=== PATIENT | female | born 1935 | race Caucasian/White ===

== ENCOUNTER 2018-12-08 16:08 | Emergency (ER) | payer OTHER, MEDICAID ==
[~2018-12-08] VITALS: Ht 157.5 cm; Wt 63.5 kg
--- NOTE | 2018-12-08 16:26 | NUR ---
Placed in room 2 . Placed on nuclear monitoring technician, blood pressure machine and pulse oximeter. To gown for exam. Side rails up. Report given to Maximino SANDOVAL.
[2018-12-08 16:28] VITALS: BP_SYST 174
--- NOTE | 2018-12-08 16:46 | NUR ---
Patient is awake and alert. Patient does not answer questions, she just stares, opens her mouth, and points at it. She does not appear to be in any distress.
[2018-12-08 16:47] LABS: BASOPHILS % (AUTO) 0.1 % (0.0-2.0); EOSINOPHILS # (AUTO) 0.2 K/uL (0.0-0.4); EOSINOPHILS % (AUTO) 2.5 % (0.0-4.0); HEMOGLOBIN 11.8 g/dL (12.0-16.0); LYMPHOCYTES # (AUTO) 2.5 K/uL (1.0-5.5); LYMPHOCYTES % (AUTO) 37.4 % (20.5-51.5); MEAN CORPUSCULAR HEMOGLOBIN 28 pg (27-31); MEAN CORPUSCULAR HGB CONC 33 % (32-36); MEAN CORPUSCULAR VOLUME 86 fL (79.0-98.0); MONOCYTES # (AUTO) 0.6 K/uL (0.0-1.0); MONOCYTES % (AUTO) 8.2 % (1.7-9.3); NEUTROPHILS # (AUTO) 3.5 K/uL (1.8-7.7); NEUTROPHILS % (AUTO) 51.8 % (40.0-70.0); PLATELET COUNT (AUTO) 206 K/uL (130-430); RED BLOOD CELL COUNT(AUTO) 4.18 MIL/uL (4.2-6.2); RED CELL DISTRIBUTION WIDTH 14.2 % (9.0-15.0); WHITE BLOOD COUNT (AUTO) 6.8 K/uL (4.8-10.8)
--- NOTE | 2018-12-08 16:50 | NUR ---
ER Dr. Langston at bedside examining patient.
[2018-12-08 17:03] LABS: ANION GAP 6 (5-15); CALCIUM 9.2 mg/dL (8.4-11.0); CHLORIDE 101 mmol/L (98-107); GLUCOSE 96 mg/dL (70-99); POTASSIUM 3.6 mmol/L (3.5-5.1); SODIUM SERUM 134 mmol/L (136-145); UREA NITROGEN, BLOOD 17 mg/dL (8-21)
[2018-12-08 17:05] LABS: BILIRUBIN,URINE NEGATIVE (NEGATIVE); BLOOD, URINE NEGATIVE (NEGATIVE); CLARITY/URINE HAZY (CLEAR); COLOR,URINE YELLOW (YELLOW); GLUCOSE,URINE NEGATIVE (NEGATIVE); KETONES,URINE NEGATIVE (NEGATIVE); LEUKOCYTE ESTERASE ,URINE 1+ (NEGATIVE); NITRITE, URINE POSITIVE (NEGATIVE); PH,URINE 5.5 (5.0-8.0); PROTEIN URINE NEGATIVE (NEGATIVE); UROBILINOGEN,URINE 0.2 (0.2-1.0)
--- NOTE | 2018-12-08 17:06 | NUR ---
X-ray at bedside.
--- NOTE | 2018-12-08 17:20 | NUR ---
Patient refused IV insertion. Dr. Langston made aware.
[2018-12-08] MEDS ORDERED: cefTRIAXone 1 GM IVPB PREMIX 50 ML IV ONE (17:30)
[2018-12-08] MEDS ORDERED: hydrALAZINE HCL 20 MG/ML VIAL IVP ONE (17:30)
[2018-12-08] MEDS ORDERED: CIPROFLOXACIN HCL 500 MG TABLET PO ONE (17:45)
[2018-12-08] MEDS ORDERED: cloNIDine HCL 0.1 MG TABLET PO ONE ×2 (17:45→18:45)
[2018-12-08 18:04] LABS: BACTERIA,URINE MANY /HPF (None Seen); RBC,URINE 0-3 /HPF (0-3); WBC,URINE 20-50 /HPF (0-3)
[2018-12-08 18:05] LABS: MUCUS,URINE None Seen /LPF (None Seen)
--- NOTE | 2018-12-08 18:56 | NUR ---
Called Alli at [phone] to give report, Alli stated he would not accept patient due to blood pressure. Dr. Langston made aware.
[2018-12-08] MEDS ORDERED: hydrALAZINE HCL 10 MG TABLET PO ONE (19:00)
--- NOTE | 2018-12-08 19:12 | NUR ---
Report given to JAIME Langston for continuation of care.
--- NOTE | 2018-12-08 19:23 | NUR ---
Medication was given, pt tolerated well. No adverse reaction, will continue to monitor.
--- NOTE | 2018-12-08 19:55 | NUR ---
Spoke with Dimple from [facility] in regards to transferring patient. Per Dimple, she stated she will call us back because they want to speak with Dr. Foster.
--- NOTE | 2018-12-08 20:00 | NUR ---
Spoke with Dr. Foster in regards to patient's blood pressure and [facility] nurses refusing patient transfer based upon blood pressure. No new orders given. Dr. Lindsay made aware.
--- NOTE | 2018-12-08 20:21 | NUR ---
Gave report to Cally from [facility]. Informed nurse that patient's blood pressure is now 168/64. Cally accepted transfer for patient. Currently calling for transportation.
--- NOTE | 2018-12-08 21:03 | NUR ---
patient's current blood pressure is 166/70. patient denies any pain, shortness of breath, and blurred vision.
[2018-12-08 21:18] VITALS: BP_SYST 168
--- NOTE | 2018-12-08 21:18 | NUR ---
Note undone in EDM - 12/09/18 at 0257 by [email or web address] Patient given written and verbal discharge instructions and verbalizes understanding. ER discussed with patient the results and treatment provided. Patient in stable condition. ID arm band removed. Rx of Cipro given. Patient educated on pain management and to follow up with PMD. Pain Scale 0. Opportunity for questions provided and answered. Medication side effect fact sheet provided. Gave report to Roxanna from [facility].
--- NOTE | 2018-12-08 21:18 | NUR ---
Patient to be transferred to [facility]. Is being transferred due to higher level of care. Receiving facility has accepting physician and available space. ER physician has signed transfer form. Patient or responsible democrat has agreed to transfer and signed form. Patient belongings inventoried and will be sent with patient. Copy of nursing notes, lab reports, EKG, Physicians Orders and X-rays to be sent with patient. Report called to Cally at receiving facility. Receiving physician is Dr. Foster. [facility] service has been called for transfer. VSS.
[2018-12-09 14:35] LABS: CHOLESTEROL 109 mg/dL (<200); HDL CHOLESTEROL 27 mg/dL (>55); LDL CHOLESTEROL 61 mg/dL (<100); TRIGLYCERIDES 129 mg/dL (30-150)
== END 2018-12-08 21:18 ==
LOC: SED 16:08
DX: F32.9 Major depressive disorder, single episode, unspecified (principal); N39.0 Urinary tract infection, site not specified; F03.90 Unspecified dementia, unspecified severity, without behavioral disturbance, psychotic disturbance, mood disturbance, and anxiety; I12.9 Hypertensive chronic kidney disease with stage 1 through stage 4 chronic kidney disease, or unspecified chronic kidney disease; N18.9 Chronic kidney disease, unspecified; Z88.8 Allergy status to other drugs, medicaments and biological substances
CPT/HCPCS: 36415; 71045; 74018; 80048; 80061; 81000; 83036; 84484; 85025; 87081; 87086; 93005; 99285; J0696; J0360